=== PATIENT | male | born 1955 | race Caucasian/White ===

== ENCOUNTER 2017-08-02 10:22 | Emergency (ER) | payer OTHER ==
[2017-08-02] MEDS ORDERED: NS 1,000 ML IV ONE (11:01)
--- NOTE | 2017-08-02 11:04 | EDPHY ---
HPI/HX/ROS/PE/MDM Narrative: CHIEF COMPLAINT: Intermittent hallucinations HPI: The patient is a 61 y/o male arriving with his son complaining of intermittent hallucinations over the last two days. He has a history of diabetes , hypertension, and a recent CVA 18 months ago. He does not know what caused his stroke and is unsure if it was hemorrhagic or thrombolic event. 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 He was traveling on a train from [place] to [place] over the last few days and two nights ago he woke up thinking that somebody was in the bed next to him and that he and several other people were being held hostage. This last for at least an hour. He thought this was real until people on the train did not mention the event the next day and then realized it may have been a hallucination. Yesterday he had less intense experiences he describes as "people coming towards me" that he would "try to scare off." He has occasional headaches, but does not correlate these with his symptoms. No weakness, paresthesias, or change in speech from his relative baseline. He is currently feeling normal and his son believes he is acting at baseline. He notes he is not very complaint with his medications and only uses them when he feels like he needs them. History is somewhat limited by patient's occasional word-finding difficulty. REVIEW OF SYSTEMS: Aside from elements discussed in the HPI, a comprehensive 10-point review of systems was reviewed and is negative. PMH: CVA 18 months ago with intermittent expressive aphasia, diabetes, hypertension SOCIAL HISTORY: From [place]. Son at bedside. PHYSICAL EXAM: General:Patient is alert, in no acute distress. ENT:Eyes are normal to inspection. ENT inspection normal. Neck: Normal inspection. Full range of motion. Respiratory:No respiratory distress. Breath sounds normal bilaterally. Cardiovascular: Regular rate and rhythm. Strong peripheral pulses. Normal cap refill. Abdomen:The abdomen is nontender to palpation. There are no peritoneal signs. There are normal bowel sounds. Back: Normal to inspection. No tenderness to palpation. Skin: Normal color. No rash. Warm and dry. Extremities: Normal appearance. Full range of motion. Neuro: Oriented x3. Normal motor function. Normal sensory function. No pronator drift. Symmetric face. ED Course: This is a 61 y/o male with a history of a CVA and diabetes who presents after several episodes he describes as hallucinations over the last 2 days. He denies other associated symptoms and currently is asymptomatic. He does have intermittent word-finding difficulty that he and his son state is at baseline following his CVA. No focal neuro deficits. Plan for IV, labs, brain MRI, 1L IV NS. Brain MRI: negative. Reassessed patient and discussed findings. He remains asymptomatic and neuro exam is stable. Recommended following up with his PCP in the next few days. Strict return precautions discussed. He is comfortable with this plan. MDM: This patient presents with what sounds like an extremely vivid dream, or possible who station. We performed an extensive workup including blood work and MRI, and no acute abnormality is seen. I suspect this likely represents effect of traveling on a train for several days in the setting of fairly recent stroke and some chronic mental status issues. Patient's symptoms have resolved and there is no evidence for ongoing hallucinations. There is no evidence of acute neurologic abnormality. The patient understands that the etiology of his symptoms is not currently identified. - Data Points Imaging Results: Imaging Impressions Brain MRI 08/02/17 11:01 Impression: 1. Mild cerebral atrophy. 2. No acute infarct, acute hemorrhage, hydrocephalus, mass effect, or herniation. 3. Multiple nonspecific hyperintense T2/FLAIR signal abnormalities in the white matter of bilateral cerebral hemispheres. Differential diagnosis includes severe microvascular ischemic gliosis, versus less likely post-infectious/post- inflammatory sequela. 4. Old small cortical infarct right parietal cortex. Findings and recommendations discussed with Emergency Department physician, Thiago Gaston MD at 1205 hour, 08/02/2017. Final report concurs with initial preliminary interpretation. Imaging: Discussed imaging studies w/ call center operator Radiologist, I viewed and interpreted images myself Laboratory Results: Laboratory Results 08/02/17 11:05 08/02/17 11:05 08/02/17 08/02/17 08/02/17 11:05 11:05 11:05 WBC 9.19 10^3/uL 10^3/uL (3.80-9.50) RBC 5.19 10^6/uL 10^6/uL (4.40-6.38) Hgb 15.7 g/dL g/dL (13.7-17.5) Hct 44.3 % % (40.0-51.0) MCV 85.4 fL fL (81.5-99.8) MCH 30.3 pg pg (27.9-34.1) MCHC 35.4 g/dL g/dL (32.4-36.7) RDW 13.0 % % (11.5-15.2) Plt Count 195 10^3/uL 10^3/uL (150-400) MPV 10.1 fL fL (8.7-11.7) Neut % (Auto) 70.2 % % (39.3-74.2) Lymph % (Auto) 20.3 % % (15.0-45.0) [place] % (Auto) 8.3 % % (4.5-13.0) Eos % (Auto) 0.7 % % (0.6-7.6) Baso % (Auto) 0.3 % % (0.3-1.7) Nucleat RBC Rel Count 0.0 % % (0.0-0.2) Absolute Neuts (auto) 6.45 10^3/uL 10^3/uL (1.70-6.50) Absolute Lymphs (auto) 1.87 10^3/uL 10^3/uL (1.00-3.00) Absolute Monos (auto) 0.76 10^3/uL 10^3/uL (0.30-0.80) Absolute Eos (auto) 0.06 10^3/uL 10^3/uL (0.03-0.40) Absolute Basos (auto) 0.03 10^3/uL 10^3/uL (0.02-0.10) Absolute Nucleated RBC 0.00 10^3/uL 10^3/uL (0-0.01) Immature Gran % 0.2 % % (0.0-1.1) Immature Gran # 0.02 10^3/uL 10^3/uL (0.00-0.10) PT 13.1 SEC SEC (12.0-15.0) INR 0.97 (0.83-1.16) APTT 24.2 SEC SEC (23.0-38.0) Sodium 141 mEq/L mEq/L (135-145) Potassium 4.3 mEq/L mEq/L (3.5-5.2) Chloride 101 mEq/L mEq/L (97-110) Carbon Dioxide 26 mEq/l mEq/l (22-31) Anion Gap 14 mEq/L mEq/L (8-16) BUN 16 mg/dL mg/dL (7-23) Creatinine 0.9 mg/dL mg/dL (0.7-1.3) Estimated GFR > 60 Glucose 188 mg/dL H mg/dL (70-100) Calcium 10.1 mg/dL mg/dL (8.5-10.4) Troponin I 0.012 ng/mL ng/mL (0.000-0.034) Medications Given: Discontinued Medications Sodium Chloride (Ns) 1,000 mls @ 0 mls/hr IV EDNOW ONE; Wide Open PRN Reason: Protocol Stop: 08/02/17 11:02 Last Admin: 08/02/17 11:08 Dose: 1,000 mls General Time Seen by Provider: 08/02/17 10:46 Initial Vital Signs: Initial Vital Signs Temperature (C) 36.8 C 08/02/17 10:23 Heart Rate 96 08/02/17 10:23 Respiratory Rate 18 08/02/17 10:23 Blood Pressure 163/88 H 08/02/17 10:23 O2 Sat (%) 92 08/02/17 10:23 O2 Delivery Mode Room Air Allergies/Adverse Reactions: No Known Allergies Allergy (Unverified 08/02/17 10:28) Home Medications: Medication Instructions Recorded Aspirin 08/02/17 Losartan Potassium 08/02/17 [place]-3 08/02/17 Pantoprazole Sodium 08/02/17 metFORMIN HCL 08/02/17 Departure - Departure Disposition: Home, Routine, Self-Care Clinical Impression: Altered mental status Condition: Good Instructions: Altered Mental Status (ED) Additional Instructions: 1. Follow up with your primary care provider in the next 2-3 days. 2. Take all medications as directed. 3. Return to the ED for severe headache, weakness or numbness on one side of your body, vision changes, speech changes, or other worsening of condition. Referrals: MAYNOR RAUSCH [Other] - As per Instructions Report Scribed for: Thiago Gaston Report Scribed by: Chelsea Haywood Date of Report: 08/02/17 Time of Report: 11:04 Physician Review and Approval Statement: Portions of this note were transcribed by an ED scribe. I personally performed the history, physical exam, and medical decision making; and confirm the accuracy of the information in the transcribed note.
[2017-08-02 11:10] LABS: PLATELET COUNT 195 10^3/uL (150-400)
[2017-08-02 11:19] LABS: INR 0.97 (0.83-1.16); PROTIME(PATIENT) 13.1 SEC (12.0-15.0)
[2017-08-02 12:39] VITALS: BP 130/80
== END 2017-08-02 12:43 | disposition home or self-care (01) ==
DX: R41.82 Altered mental status, unspecified (principal); E11.9 Type 2 diabetes mellitus without complications; I10 Essential (primary) hypertension; E86.9 Volume depletion, unspecified